=== PATIENT | female | born 1945 | race Caucasian/White ===

== ENCOUNTER → 2017-03-18 | Outpatient (CLI) | payer BC ==
--- NOTE | 2017-03-18 14:49 | DIAGNOSTIC IMAGING REPORT ---
L HAND MIN 3 VIEWS ROUTINE CLINICAL HISTORY: 71 years-old Female presenting with EFFUSION, SOFT TISSUE DISORDER. TECHNIQUE: Frontal, oblique, and lateral views left hand were obtained. COMPARISON: Comparison made to plain radiographs of the right hand. FINDINGS: Extensive degenerative changes at the first carpometacarpal articulation with joint space loss, subchondral sclerosis, and cystic change with osteophytosis. No other significant degenerative changes evident. No acute fracture or malalignment. No radiographic soft tissue abnormality. 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 Electronically signed by: Tiago Danielle M.D. 03/18/2017 2:48 PM Dictated Date/Time: 03/18/2017 2:46 PM
--- NOTE | 2017-03-18 14:52 | DIAGNOSTIC IMAGING REPORT ---
R HAND MIN 3 VIEWS ROUTINE CLINICAL HISTORY: 71 years-old Female presenting with EFFUSION, SOFT TISSUE DISORDER. TECHNIQUE: Frontal, oblique, and lateral views of the right hand were obtained. COMPARISON: Correlation made to plain radiographs of the left hand performed same day. FINDINGS: Joint space loss, sclerosis, subchondral cystic change, osteophytosis the first carpometacarpal articulation. No acute fracture or malalignment. 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 Electronically signed by: Tiago Danielle M.D. 03/18/2017 2:51 PM Dictated Date/Time: 03/18/2017 2:48 PM
== END | disposition home or self-care (01) ==
LOC: C.RAD1850 14:36
PROVIDERS: ATTEND Nurse Practitioner Family
DX: M79.89 Other specified soft tissue disorders (principal); M25.449 Effusion, unspecified hand

== ENCOUNTER → 2017-07-05 | Outpatient (CLI) | payer BC ==
--- NOTE | 2017-07-05 07:49 | DIAGNOSTIC IMAGING REPORT ---
ULTRASOUND RIGHT UPPER QUADRANT ABDOMEN CLINICAL HISTORY: Nausea. Right upper quadrant abdominal pain. COMPARISON STUDY: No priors. TECHNIQUE: Real-time, grayscale, and color flow sonography of the right upper quadrant of the abdomen was performed. Images are reviewed in the transverse and longitudinal planes. FINDINGS: Liver: The liver is normal in size and echotexture. There is no intrahepatic biliary ductal dilatation. The main portal vein is patent. Gallbladder: The gallbladder is normal in appearance. No gallstones are identified. There is no gallbladder wall thickening or pericholecystic fluid. A sonographic Mak's sign is reportedly absent. The common bile duct measures up to 0.4 cm in diameter. Pancreas: Visualized portions of the pancreatic head and body are normal in appearance. The splenic vein is patent. Right kidney: Survey images of the right kidney demonstrate normal size and echotexture. There is no hydronephrosis. Small scattered cysts are incidentally noted. The largest measures 1.4 cm. Ascites: None. IMPRESSION: Unremarkable sonographic assessment of the right upper quadrant. No gallstones are identified. Electronically signed by: Jaison Waldrop M.D. 07/05/2017 7:48 AM Dictated Date/Time: 07/05/2017 7:47 AM
== END | disposition home or self-care (01) ==
LOC: C.ULTR 06:58
PROVIDERS: ATTEND Nurse Practitioner Family
DX: R10.11 Right upper quadrant pain (principal); R12 Heartburn; R11.0 Nausea